=== PATIENT | female | born 1950 | race Caucasian/White ===

== ENCOUNTER 2016-12-07 19:09 | Emergency (ER) | payer MEDICARE, BC ==
[2016-12-07] MEDS ORDERED: LORazepam 2 MG/ML MDV IM ONE (19:52)
--- NOTE | 2016-12-07 19:57 | EDM.PDOC ---
ED HPI GENERAL MEDICAL PROBLEM - General Chief Complaint: ENT Problem Stated Complaint: SOMETHING CAUGHT IN HER THROAT Time Seen by Provider: 12/07/16 19:30 Source of Information: Reports: Patient History Limitations: Reports: No Limitations - History of Present Illness INITIAL COMMENTS - FREE TEXT/NARRATIVE: PT STATES SHE WAS EATING DINNER WHICH CONSISTED OF FISH AND PEAS, AND FELT LIKE FOOD WAS NOT GOING DOWN. BECAME NERVOUS AND STUCK FINGERS IN MOUTH AND TRIED TO VOMIT. SYMPTOMS PERSISTED SO PRESENTED TO ER. DENIES CP, SOB, FEVER. ADMITS TO CHRONIC SYMPTOMS OF SAME. PT SEEN BY ENT AND HAD SWALLOW STUDY THIS WEEK. RESULTS SAID TO BE NORMAL. PT DOES HAVE H/O THYROIDECTOMY IN PAST Onset: Today Onset Date: 12/07/16 Onset Time: 18:30 Location: Reports: Neck Severity: Mild Improves with: Reports: None Worsens with: Reports: Eating Associated Symptoms: Reports: No Other Symptoms - Related Data Allergies Allergy/AdvReac Type Severity Reaction Status Date / Time No Known Drug Allergies Allergy NKDA Verified 12/07/16 19:18 Home Meds: Home Meds Levothyroxine Sodium [Synthroid] 112 mcg PO DAILY 12/07/16 [History] Past Medical History - Past Surgical History Other Musculoskeletal Surgeries/Procedures:: left ankle fixation Social & Family History - Tobacco Use Smoking Status *Q: Never Smoker Second Hand Smoke Exposure: Yes - Alcohol Use Days Per Week of Alcohol Use: 0 Number of Drinks Per Day: 2 Total Drinks Per Week: 0 - Recreational Drug Use Recreational Drug Use: No ED ROS ENT - Review of Systems Review Of Systems: ROS reveals no pertinent complaints other than HPI. Constitutional: Reports: No Symptoms HEENT: Reports: Throat Pain Respiratory: Reports: No Symptoms Cardiovascular: Reports: No Symptoms Endocrine: Reports: No Symptoms GI/Abdominal: Reports: No Symptoms : Reports: No Symptoms Musculoskeletal: Reports: No Symptoms Skin: Reports: No Symptoms Neurological: Reports: No Symptoms Psychiatric: Reports: No Symptoms Hematologic/Lymphatic: Reports: No Symptoms Immunologic: Reports: No Symptoms ED EXAM, ENT - Physical Exam Exam: See Below Exam Limited By: No Limitations General Appearance: Alert, WD/WN, Mild Distress Nose: Normal Inspection, No Blood Mouth/Throat: Normal Inspection, Normal Oropharynx. No: Peritonsillar Mass, Pharyngeal Erythema, Throat Swelling, Tongue Swelling, Tonsillar Exudates, Tonsillar Swelling, Trismus, Uvular Deviation, Uvular Edema Neck: Normal Inspection, Supple. No: Lymphadenopathy (L), Lymphadenopathy (R) Respiratory/Chest: No Respiratory Distress, Lungs Clear, Normal Breath Sounds, No Accessory Muscle Use, Chest Non-Tender Cardiovascular: Regular Rate, Rhythm, No Murmur GI/Abdominal: Normal Bowel Sounds, Soft, Non-Tender, No Mass Extremities: Normal Inspection Neurological: Alert, Oriented, Normal Cognition Psychiatric: Anxious Skin: Warm, Dry, Intact, Normal Color, No Rash Lymphatic: No Adenopathy Course - Orders/Labs/Meds Orders: Active Orders 24 hr Category Date Time Status Neck Soft Tissue [CR] Stat Exams 12/07/16 19:24 Taken - Radiology Interpretation Free Text/Narrative:: SOFT TISSUE NECK XRAY NEGATIVE FOR FB - Re-Assessments/Exams Free Text/Narrative Re-Assessment/Exam: 12/07/16 19:59 PT AFEBRILE, NONTOXIC APPEARING, VSS, VOMITED WHILE IN ER AND FEELS MUCH BETTER. 12/07/16 20:00 Departure - Departure Time of Disposition: 20:06 Disposition: Home, Self-Care 01 Condition: good Clinical Impression: Choked on food - Discharge Information Instructions: Choking, Adult Forms: ED Department Discharge Additional Instructions: EAT MEALS SLOWLY AND MAKE SURE PIECES OF FOOD ARE CUT INTO SMALL PIECES. FOLLOW UP WITH DR VENEGAS NEXT WEEK. RETURN TO ER SOONER IF SYMPTOMS CONTINUE - My Orders Last 24 Hours: My Active Orders 12/07/16 19:24 Neck Soft Tissue [CR] Stat - Assessment/Plan Last 24 Hours: My Active Orders 12/07/16 19:24 Neck Soft Tissue [CR] Stat Assessment:: THROAT PAIN / SWALLOWING DIFFICULTY Plan: FOLLOW UP WITH ENT
[2016-12-07 20:10] VITALS: BP 136/88
== END 2016-12-07 20:15 | disposition home or self-care (01) ==
LOC: KA.ED 19:09
DX: T17.228A Food in pharynx causing other injury, initial encounter (principal); Z79.899 Other long term (current) drug therapy
CPT/HCPCS: 70360; 99282; 99284

== ENCOUNTER 2018-01-22 10:20 | Day surgery (SDC) | payer MEDICARE, BC ==
[2018-01-22] MEDS ORDERED: Midazolam 1 MG/ML 2 ML SDV ONE (10:27)
[2018-01-22] MEDS ORDERED: Lidocaine 2% 5 ML SDV ONE (10:28)
[2018-01-22] MEDS ORDERED: fentaNYL 100 MCG/2 ML SDV ONE (10:28)
[2018-01-22] MEDS ORDERED: Propofol 200 MG/20 ML SDV ONE (10:28)
[2018-01-22] MEDS ORDERED: Sodium Chloride 0.9% 5 ML Syringe FLUSH PRN (10:30)
[2018-01-22] MEDS: Lactated Ringers 1,000 ML IV SCH (10:55)
--- NOTE | 2018-01-22 12:01 | PCM.PN ---
- General Info Date of Service: 01/22/18 - Review of Systems Systems Review Comment:: 67-year-old female referred for upper endoscopy. She has a history of nausea which is unexplained. She also has intermittent abdominal pain. She states she tried omeprazole with some improvement in the past. I have discussed the proposed upper endoscopy with the patient. Her recent history and physical is reviewed and there is no significant changes noted. She agrees to proceed accepting risks. - Patient Data Vitals - Most Recent: Last Vital Signs Temp 97.8 F 01/22/18 10:29 Pulse 70 01/22/18 10:29 Resp 16 01/22/18 10:29 BP 133/57 L 01/22/18 10:29 Pulse Ox 93 L 01/22/18 10:29 Weight - Most Recent: 63.503 kg Med Orders - Current: Current Medications Lactated Ringer's (Ringers, Lactated) 1,000 mls @ 50 mls/hr IV ASDIRECTED SUKHJINDER Sodium Chloride (Syrex Flush) 5 ml FLUSH Q8HR PRN PRN Reason: Keep Vein Open Discontinued Medications Fentanyl (Sublimaze) Confirm Administered Dose 100 mcg .ROUTE .STK-MED ONE Stop: 01/22/18 10:29 Lidocaine (Xylocaine-Mpf 2%) Confirm Administered Dose 5 ml .ROUTE .STK-MED ONE Stop: 01/22/18 10:29 Midazolam HCl (Versed 1 Mg/Ml) Confirm Administered Dose 2 mg .ROUTE .STK-MED ONE Stop: 01/22/18 10:28 Propofol (Diprivan 20 Ml) Confirm Administered Dose 200 mg .ROUTE .STK-MED ONE Stop: 01/22/18 10:29 - Problem List Review Problem List Initiated/Reviewed/Updated: Yes - My Orders Last 24 Hours: My Active Orders 01/22/18 10:30 Peripheral IV Care [RC] . DIRECTED Vital Signs [RC] PER UNIT ROUTINE Lactated Ringers [Ringers, Lactated] 1,000 ml IV ASDIRECTED Sodium Chloride 0.9% [Syrex Flush] 5 ml FLUSH Q8HR PRN Peripheral IV Insertion Adult [OM.PC] Routine 01/22/18 11:00 Patient to Empty Bladder [RC] ASDIRECTED 01/22/18 11:25 Verify Patient Consent Obtain [RC] ASDIRECTED 07/10/18 Breakfast Nothing Per Oral Diet [DIET] - Assessment Assessment:: Abdominal pain Nausea - Plan Plan:: Upper endoscopy
[2018-01-22] MEDS ORDERED: Midazolam 1 MG/ML 2 ML SDV IV ONE (12:18)
[2018-01-22] MEDS ORDERED: Propofol 200 MG/20 ML SDV IV ONE (12:18)
[2018-01-22] MEDS ORDERED: fentaNYL 100 MCG/2 ML SDV IV ONE (12:18)
--- NOTE | 2018-01-22 13:02 | PCM.OPNOTE ---
- General Post-Op/Procedure Note Date of Surgery/Procedure: 01/22/18 Operative Procedure(s): EGD with biopsy and balloon esophageal dilation Findings: Esophageal stricture at GE junction Esophagitis in lower esophagus suggestive of Lena esophagitis No visible ulcers Normal duodenum Pre Op Diagnosis: Abdominal pain. Nausea Post-Op Diagnosis: Esophageal stricture. Esophagitis Anesthesia Technique: MAC Primary Surgeon: Alirio Fernandes Pathology: Biopsies of duodenum, antrum, and lower esophagus Output, Urine Amount: 0 EBL in mLs: 5 Complications: None Condition: Good
[2018-01-22 15:12] VITALS: BP 134/59
--- NOTE | 2018-01-22 23:56 | OR ---
DATE OF SURGERY: 01/22/2018 SURGEON: Alirio Fernandes MD PREOPERATIVE DIAGNOSIS: Abdominal pain and nausea. POSTOPERATIVE DIAGNOSIS: Esophagitis and esophageal stricture. OPERATION PERFORMED: Esophagogastroduodenoscopy with biopsy and balloon dilation of esophageal stricture. INDICATIONS FOR SURGERY: This 67-year-old female has been having intermittent abdominal pain as well as unexplained nausea. She is referred for diagnostic upper endoscopy. FINDINGS: The patient has a mild degree of inflammation in the lower part of the esophagus. There is some scattered small white patches suggesting this may be secondary to Lena esophagitis. She also has a stricture at the GE junction 35 cm from the incisors. The scope was able to be advanced past this point. There was no evidence of extrinsic or intrinsic mass. The mucosa of the stomach otherwise appeared normal without visible signs of ulceration and her duodenum also appeared normal. DESCRIPTION OF PROCEDURE: The patient was taken to the operating room. She was given intravenous sedation, and with her in the left lateral decubitus position, the esophagus was intubated via a mouth guard under direct visualization. The scope was then carefully advanced through the esophagus, stomach and down into the duodenum where examination to the third portion was performed. The duodenum was then carefully removed and random biopsies of the duodenal mucosa were taken to rule out celiac disease. Scope withdrawn back into the stomach and random biopsies of the antrum were taken to rule out H. pylori. The upper portion of the stomach is carefully examined with retroflexion. The GE junction is examined and dilation of the esophageal stricture is carried out using an inflatable balloon to 49[place]. There seemed to be good dilation of the stricture with this, but dilation was not carried further in order to limit any chance of esophageal injury. Biopsies of the lower part of the esophagus above the area of dilation were also taken to rule out Lena esophagitis. With no sign of any complications, scope was then removed, and the patient was taken from the operating room in satisfactory condition. ESTIMATED BLOOD LOSS: 5 mL. COMPLICATIONS: None. PROGNOSIS: Good. /[id number]/MODL
== END 2018-01-22 14:40 | disposition home or self-care (01) ==
LOC: KA.SDS 10:20
PROVIDERS: ATTEND Surgery
DX: K29.50 Unspecified chronic gastritis without bleeding (principal); K20.9 Esophagitis, unspecified; K22.2 Esophageal obstruction; K31.89 Other diseases of stomach and duodenum; E86.0 Dehydration; Z79.899 Other long term (current) drug therapy
CPT/HCPCS: 00731; 88305; 88312; 88342; J2250; J2704; J3010; J7120

== ENCOUNTER 2019-06-24 11:00 | Day surgery (SDC) | payer MEDICARE, BC ==
[2019-06-24] MEDS: Sodium Chloride 0.9% 10 ML Syringe FLUSH PRN (11:30)
[2019-06-24] MEDS: Lactated Ringers 1,000 ML IV SCH (11:30)
--- NOTE | 2019-06-24 12:38 | PCM.PN ---
- General Info Date of Service: 06/24/19 - Review of Systems Systems Review Comment:: 69-year-old female referred for EGD and colonoscopy. She has a history of upper abdominal pain. She notes today that this has been most pronounced after eating fatty and sugary foods. He is also having some pain in the right and left lateral abdomen and it is been several years since her last colonoscopy. I have discussed the proposed EGD and colonoscopy with the patient. She agrees to proceed excepting risks. Her recent history and physical is reviewed. No significant changes are noted. - Patient Data Vitals - Most Recent: Last Vital Signs Temp 97.8 F 06/24/19 11:35 Pulse 86 06/24/19 11:35 Resp 14 06/24/19 11:35 BP 115/72 06/24/19 11:35 Pulse Ox 96 06/24/19 11:35 Weight - Most Recent: 63.503 kg Med Orders - Current: Current Medications Lactated Ringer's (Ringers, Lactated) 1,000 mls @ 30 mls/hr IV ASDIRECTED SUKHJINDER Last Admin: 06/24/19 11:30 Dose: 30 mls/hr Sodium Chloride (Saline Flush) 10 ml FLUSH Q8HR PRN PRN Reason: keep vein open Last Admin: 06/24/19 11:30 Dose: 10 ml Sepsis Event Note - Focused Exam Vital Signs: Vital Signs Temp Pulse Resp BP Pulse Ox 06/24/19 11:35 97.8 F 86 14 115/72 96 Date Exam was Performed: 06/24/19 Time Exam was Performed: 12:36 - Problem List Review Problem List Initiated/Reviewed/Updated: Yes - My Orders Last 24 Hours: My Active Orders 06/23/19 16:00 Resuscitation Status Routine 06/24/19 11:15 Verify Patient Consent Obtain [RC] ASDIRECTED Vital Signs [RC] PER UNIT ROUTINE Lactated Ringers [Ringers, Lactated] 1,000 ml IV ASDIRECTED Sodium Chloride 0.9% [Saline Flush] 10 ml FLUSH Q8HR PRN Peripheral IV Insertion Adult [OM.PC] Routine 06/24/19 Breakfast Nothing Per Oral Diet [DIET] - Assessment Assessment:: Abdominal pain Colon cancer screening - Plan Plan:: EGD and colonoscopy
[2019-06-24] MEDS ORDERED: Midazolam 1 MG/ML 2 ML SDV ONE (12:42)
[2019-06-24] MEDS ORDERED: Propofol 200 MG/20 ML SDV ONE (12:43)
[2019-06-24] MEDS ORDERED: Lidocaine 2% 100 MG/5 ML Syringe ONE (12:43)
[2019-06-24] MEDS ORDERED: Ondansetron 4 MG/2 ML SDV IVPUSH ONE (13:30)
--- NOTE | 2019-06-24 13:48 | PCM.OPNOTE ---
- General Post-Op/Procedure Note Date of Surgery/Procedure: 06/24/19 Operative Procedure(s): EGD with Biopsy. Colonoscopy Findings: Moderate esophageal stricture at GE Jct. without mass effect Moderate hiatal hernia Moderate Sigmoid Diverticulosis Pre Op Diagnosis: Abdominal pain. Dysphagia Post-Op Diagnosis: Esophageal Stricture. Hiatal Hernia. Sigmoid Diverticulosis Anesthesia Technique: [facility] [place] Primary Surgeon: Alirio Fernandes Pathology: Biopsies of duodenum, gastric antrum, GE Jct EBL in mLs: 3 Complications: None Condition: Good
[2019-06-24 15:12] VITALS: BP 118/52; PULSE 67
--- NOTE | 2019-06-24 15:54 | OR ---
DATE OF SURGERY: 06/24/2019 SURGEON: Alirio Fernandes MD PREOPERATIVE DIAGNOSIS: Dysphagia and abdominal pain. POSTOPERATIVE DIAGNOSIS: Hiatal hernia with distal esophageal stricture and sigmoid diverticulosis. OPERATION PERFORMED: Esophagogastroduodenoscopy with biopsy and colonoscopy. INDICATIONS FOR SURGERY: This 69-year-old female has been having some symptoms of dysphagia. She has also noted intermittent and somewhat variable abdominal pain. It has also been several years since her last colonoscopy. FINDINGS: On upper endoscopy, the patient had a moderately severe benign- appearing stricture at the GE junction. This was able to be traversed by the gastroscope after some gentle pressure. There was no associated mass effect or visible signs of inflammation. There was associated with this a 2-3 cm hiatal hernia, which also appeared benign. The remainder of the gastric lining as well as the lining of the duodenum and the remainder of the esophagus appeared normal. During colonoscopy, the patient did have a moderate amount of sigmoid diverticulosis, but no other abnormalities were noted. DESCRIPTION OF PROCEDURE: The patient was taken to the operating room. She was given intravenous sedation and with her in the left lateral decubitus position, the gastroscope was advanced through the mouth guard into the oral cavity. The scope was then carefully advanced under direct visualization down through the hypopharynx into the esophagus. The scope was advanced down to the distal aspect of the esophagus where a stricture was noted. With gentle pressure, the scope was able to traverse this stricture slightly dilating it, but without any indication of esophageal injury. The scope was advanced through the stomach and on into the duodenum where examination to the 3rd portion was performed. The duodenum was carefully examined and random biopsies of this were taken because of the patient's abdominal pain. The scope was withdrawn back into the stomach where full examination including retroflexed examination of the fundus was performed. Random biopsies of the antrum were taken to rule out H pylori. The GE junction was carefully examined and biopsies of this are taken because of the presence of the stricture. The scope was then withdrawn re-examining the esophagus and then removed. Attention was turned to colonoscopy. Digital rectal exam was performed showing no rectal masses. The Olympus colonoscope was inserted into the rectum. Retroflexed examination of the rectal canal was performed. The scope was then carefully advanced under direct visualization through the entire length of the colon until cecum was reached. Cecal acquisition was confirmed by noting the normal internal cecal anatomy including the appendiceal orifice and ileocecal valve. The light was also noted to transilluminate the abdominal wall in the right lower quadrant. After examining the cecum, the scope was slowly withdrawn sequentially re-examining the colonic segments. Once the entire colon and rectum had been fully examined, the scope was removed and the patient was taken from the operating room in satisfactory condition. ESTIMATED BLOOD LOSS: 3 mL. COMPLICATIONS: None. PROGNOSIS: Good. /[id number]/MODL
== END 2019-06-24 15:37 | disposition home or self-care (01) ==
LOC: KA.SDS 11:00
PROVIDERS: ATTEND Surgery
DX: K44.9 Diaphragmatic hernia without obstruction or gangrene (principal); K22.2 Esophageal obstruction; K57.30 Diverticulosis of large intestine without perforation or abscess without bleeding; K29.50 Unspecified chronic gastritis without bleeding; K20.8 Other esophagitis; Z79.899 Other long term (current) drug therapy
CPT/HCPCS: 00813; J2001; J2250; J2405; J2704; J7120

== ENCOUNTER 2020-07-20 07:58 | Day surgery (SDC) | payer MEDICARE, BC ==
[2020-07-20] MEDS ORDERED: Glycopyrrolate 0.2 MG/ML SDV IVPUSH ONE (07:59)
[2020-07-20] MEDS ORDERED: Propofol 200 MG/20 ML SDV IV ONE (07:59)
[2020-07-20] MEDS ORDERED: Midazolam 1 MG/ML 2 ML SDV IV ONE (07:59)
[2020-07-20] MEDS ORDERED: Lactated Ringers 1,000 ML IV SCH (08:00)
[2020-07-20] MEDS ORDERED: Sodium Chloride 0.9% 10 ML Syringe FLUSH PRN (08:00)
[2020-07-20] MEDS ORDERED: Propofol 200 MG/20 ML SDV ONE (08:20)
[2020-07-20] MEDS ORDERED: Glycopyrrolate 0.2 MG/ML SDV ONE (08:20)
[2020-07-20] MEDS ORDERED: Midazolam 1 MG/ML 2 ML SDV ONE (08:20)
[2020-07-20] MEDS ORDERED: Lidocaine 2% 5 ML SDV ONE (08:21)
[2020-07-20 10:36] VITALS: BP 146/76; PULSE 74
== END 2020-07-20 10:55 | disposition home or self-care (01) ==
LOC: KA.SDS 07:58
PROVIDERS: ATTEND Surgery
DX: K22.2 Esophageal obstruction (principal); K44.9 Diaphragmatic hernia without obstruction or gangrene; F32.9 Major depressive disorder, single episode, unspecified; E78.00 Pure hypercholesterolemia, unspecified; E21.0 Primary hyperparathyroidism; E03.9 Hypothyroidism, unspecified; E55.9 Vitamin D deficiency, unspecified; M81.0 Age-related osteoporosis without current pathological fracture; Z98.890 Other specified postprocedural states; Z79.899 Other long term (current) drug therapy; Z79.890 Hormone replacement therapy; Z90.49 Acquired absence of other specified parts of digestive tract
CPT/HCPCS: 00731; J2250; J2704; J3490; J7120

== ENCOUNTER 2022-11-07 07:54 | Day surgery (SDC) | payer MEDICARE, BC ==
[2022-11-07] MEDS ORDERED: Glycopyrrolate 0.2 MG/ML SDV IVPUSH ONE (07:55)
[2022-11-07] MEDS ORDERED: Lactated Ringers 1,000 ML IV SCH (08:00)
[2022-11-07] MEDS ORDERED: Sodium Chloride 0.9% 10 ML Syringe FLUSH PRN (08:00)
[2022-11-07] MEDS ORDERED: Midazolam 1 MG/ML 2 ML SDV ONE (09:01)
[2022-11-07] MEDS ORDERED: Propofol 200 MG/20 ML SDV ONE (09:01)
[2022-11-07] MEDS ORDERED: Lidocaine 2% 5 ML SDV ONE (09:02)
[2022-11-07 11:15] VITALS: PULSE 71
[2022-11-07 11:16] VITALS: BP 138/67
== END 2022-11-07 11:42 | disposition home or self-care (01) ==
LOC: KA.SDS 07:54
PROVIDERS: ATTEND Surgery
DX: K22.2 Esophageal obstruction (principal); K44.9 Diaphragmatic hernia without obstruction or gangrene; F32.A Depression, unspecified; E78.00 Pure hypercholesterolemia, unspecified; E21.0 Primary hyperparathyroidism; G44.319 Acute post-traumatic headache, not intractable; E21.3 Hyperparathyroidism, unspecified; E03.9 Hypothyroidism, unspecified; M81.0 Age-related osteoporosis without current pathological fracture; Z79.890 Hormone replacement therapy; Z79.899 Other long term (current) drug therapy
CPT/HCPCS: J2250; J2704; J3490; J7120

== ENCOUNTER 2024-06-08 11:19 | Emergency (ER) | payer MEDICARE, BC ==
[2024-06-08] MEDS ORDERED: Sodium Chloride 0.9% 10 ML Syringe FLUSH PRN (11:44)
[2024-06-08] MEDS: Sodium Chloride 0.9% 1,000 ML IV ONE (11:51)
[2024-06-08 11:57] LABS: BASOPHILS ABSOLUTE AUTO 0.02 10^3/uL (0.00-0.10); BASOPHILS PERCENT AUTO 0.3 % (0.0-1.0); EOSINOPHILS ABSOLUTE AUTO 0.01 10^3/uL (0.10-0.30); EOSINOPHILS PERCENT AUTO 0.1 % (1.0-3.0); HEMOGLOBIN 14.6 g/dL (12.0-16.0); IMMATURE GRAN ABSOLUTE AUTO 0.01 10^3/uL (0.00-0.50); IMMATURE GRAN PERCENT AUTO 0.1 % (0.0-5.0); LYMPHOCYTES ABSOLUTE AUTO 1.61 10^3/uL (1.00-4.00); LYMPHOCYTES PERCENT AUTO 22.7 % (20.0-40.0); MEAN CORPUSCULAR HEMOGLOBIN 29.9 pg (27.0-31.0); MEAN CORPUSCULAR VOLUME 88.1 fL (82.0-92.0); MEAN PLATELET VOLUME 11.8 fL (7.4-10.4); MONOCYTES ABSOLUTE AUTO 0.79 10^3/uL (0.10-0.80); MONOCYTES PERCENT AUTO 11.1 % (2.0-8.0); NEUTROPHILS ABSOLUTE AUTO 4.66 10^3/uL (2.50-7.00); NEUTROPHILS PERCENT AUTO 65.7 % (50.0-70.0); PLATELET COUNT,PLT 134 10^3/uL (150-400); RED BLOOD CELL COUNT 4.88 10^6/uL (3.80-5.50); RED CELL DISTRIBUTION WIDTH 12.3 % (11.5-14.5)
[2024-06-08 12:26] LABS: ALBUMIN 3.76 g/dL (3.40-5.00); ANION GAP 13.3 mmol/L (5-15); BILIRUBIN TOTAL 0.4 mg/dL (0.2-1.0); CALCIUM 8.5 mg/dL (8.7-10.3); CARBON DIOXIDE,CO2 28.8 mmol/L (21.0-32.0); CREATININE 0.53 mg/dL (0.51-1.17); EST CRCL DRUG DOSING (CG) 84.06 mL/min; POTASSIUM,K 4.1 mmol/L (3.5-5.1); PROTEIN TOTAL,TP 6.9 g/dL (6.4-8.2)
[2024-06-08] MEDS: Ondansetron 4 MG/2 ML SDV IVPUSH ONE (12:27)
[2024-06-08 12:29] LABS: APPEARANCE,URINE CLEAR (CLEAR); BILIRUBIN,URINE NEGATIVE (NEGATIVE); COLOR,URINE LIGHT YELLOW (YELLOW); GLUCOSE,URINE NEGATIVE (NEGATIVE); KETONES,URINE NEGATIVE (NEGATIVE); LEUKOCYTE ESTERASE,URINE NEGATIVE (NEGATIVE); NITRITE,URINE NEGATIVE (NEGATIVE); OCCULT BLOOD,URINE NEGATIVE (NEGATIVE); PH,URINE 6.5 (5.0-9.0); PROTEIN,URINE NEGATIVE (NEGATIVE); UROBILINOGEN,URINE 0.2 E.U./dL (0.2-1.0)
[2024-06-08] MEDS: Ondansetron 4 MG Tab.DIS PO ONE (12:53)
[2024-06-08 13:25] VITALS: BP 156/63; PULSE 62
== END 2024-06-08 12:22 | disposition home or self-care (01) ==
LOC: KA.ED 11:19
DX: U07.1 COVID-19 (principal); K59.1 Functional diarrhea; E86.0 Dehydration; R11.2 Nausea with vomiting, unspecified; K21.9 Gastro-esophageal reflux disease without esophagitis; E03.9 Hypothyroidism, unspecified; Z90.49 Acquired absence of other specified parts of digestive tract; Z90.710 Acquired absence of both cervix and uterus; Z88.8 Allergy status to other drugs, medicaments and biological substances; Z79.890 Hormone replacement therapy; Z79.899 Other long term (current) drug therapy
CPT/HCPCS: 36415; 80053; 81003; 83605; 83690; 85025; 96361; 96374; 99284; 99284-25; A9270-GY; J2405; J7030

== ENCOUNTER 2024-08-12 11:19 | Day surgery (SDC) | payer MEDICARE, BC ==
[~2024-08-12 11:19] MED LIST: Sodium Chloride 0.9% 10 ML Syringe FLUSH PRN
[2024-08-12] MEDS ORDERED: Midazolam 1 MG/ML 2 ML SDV ONE (11:29)
[2024-08-12] MEDS ORDERED: Propofol 200 MG/20 ML SDV ONE (11:29)
[2024-08-12] MEDS: Lactated Ringers 1,000 ML IV SCH (11:38)
[2024-08-12] MEDS ORDERED: Sodium Chloride 0.9% 10 ML Syringe FLUSH PRN ×2 (12:55→13:15)
[2024-08-12] MEDS ORDERED: Lactated Ringers 1,000 ML IV SCH (13:15)
[2024-08-12 14:33] VITALS: BP 134/69; PULSE 75
== END 2024-08-12 14:13 | disposition home or self-care (01) ==
LOC: KA.SDS 11:19
PROVIDERS: ATTEND Surgery
DX: Z12.11 Encounter for screening for malignant neoplasm of colon (principal); D12.5 Benign neoplasm of sigmoid colon; K57.30 Diverticulosis of large intestine without perforation or abscess without bleeding; E78.00 Pure hypercholesterolemia, unspecified; E03.9 Hypothyroidism, unspecified; Z79.899 Other long term (current) drug therapy
CPT/HCPCS: 00811; 99100; J2250; J2704; J7120

== ENCOUNTER 2025-06-17 10:34 | Emergency (ER) | payer MEDICARE, BC ==
[2025-06-17 11:33] VITALS: BP 156/76; PULSE 74
== END 2025-06-17 11:55 | disposition home or self-care (01) ==
LOC: KA.ED 10:34
DX: S30.0XXA Contusion of lower back and pelvis, initial encounter (principal); E78.00 Pure hypercholesterolemia, unspecified; E03.9 Hypothyroidism, unspecified; Z88.8 Allergy status to other drugs, medicaments and biological substances; Z79.890 Hormone replacement therapy; Z79.899 Other long term (current) drug therapy; W18.39XA Other fall on same level, initial encounter; Y93.89 Activity, other specified
CPT/HCPCS: 72170; 72220; 99283; 99284